=== PATIENT | female | born 1970 | race Caucasian/White ===

== ENCOUNTER 2023-08-25 15:44 | Emergency (ER) | payer BC, MEDICAID ==
[~2023-08-25] VITALS: Ht 170.2 cm; Wt 70.3 kg
[2023-08-25 15:45] VITALS: BP_SYST 113; PULSE 101; RESP 18; TEMP 98.7; O2SAT 97
[2023-08-25] MEDS ORDERED: IBUP-1969 PO (17:33)
[2023-08-25] MEDS: HYDROcodone/ACETAMIN 5-325 MG TAB (NORCO/ VICODIN) PO ONE (17:33)
[2023-08-25] MEDS: KETOROLAC TROMETHAMINE 15 MG VIAL IM ONE (17:34)
[2023-08-25 17:47] VITALS: BP_SYST 113; PULSE 101; RESP 18; TEMP 98.7; O2SAT 97
== END 2023-08-25 17:49 | disposition home or self-care (01) ==
LOC: SED 15:44
DX: S96.911A Strain of unspecified muscle and tendon at ankle and foot level, right foot, initial encounter (principal); W01.0XXA Fall on same level from slipping, tripping and stumbling without subsequent striking against object, initial encounter; Y93.89 Activity, other specified; Y92.89 Other specified places as the place of occurrence of the external cause; Y99.8 Other external cause status
CPT/HCPCS: 99284; 73610; 73630; 96372; J1885